=== PATIENT | male | born 1985 | race Caucasian/White ===

== ENCOUNTER 2018-12-08 23:09 | Emergency (ER) | payer MEDICARE ==
[~2018-12-08] VITALS: Ht 170.2 cm; Wt 81.6 kg
[2018-12-08 23:15] VITALS: Ht 170.2 cm; Wt 81.6 kg
[2018-12-09 00:36] LABS: HEMATOCRIT 44.5 % (42.0-54.0); HEMOGLOBIN 15.6 g/dL (13.5-17.5); LYMPHOCYTES 18.7 % (15-50); MCH 29.8 pg (26.0-34.0); MCHC 35.1 g/dL (31.0-37.0); MCV 85.1 fL (80.0-100.0); MEAN PLATELET VOLUME 10.7 fL (7.4-10.4); NEUTROPHILS 75.1 % (40-80); PLATELET COUNT 279 10x3/uL (130-400); RBC 5.23 10x6/uL (4.20-6.10); RDW 13.6 % (11.5-14.5); WBC 10.3 10x3/uL (4.8-10.8)
[2018-12-09 00:55] LABS: ALBUMIN 3.9 g/dL (3.4-5.0); ALKALINE PHOSPHATASE 72 U/L (46-116); ALT (SGPT) 37 U/L (10-68); BILIRUBIN - TOTAL 0.62 mg/dL (0.2-1.3); CALC OSMOLALITY 274 mosm/kg (275-300); CALCIUM 9.9 mg/dL (8.5-10.1); CARBON DIOXIDE 18.9 mmol/L (21.0-32.0); CHLORIDE - SERUM 100 mmol/L (98-107); CREATININE - SERUM 1.2 mg/dL (0.6-1.3); GLUCOSE 128 mg/dL (74-106); POTASSIUM - SERUM 3.1 mmol/L (3.5-5.1); PROTEIN - SERUM 8.8 g/dL (6.4-8.2); SODIUM 137 mmol/L (136-145); UREA NITROGEN 10 mg/dL (7-18); eGFR NON AFRICAN AMERICAN 75 mL/min (90-120)
[2018-12-09 01:01] LABS: AMYLASE - SERUM 52 U/L (25-115); LIPASE 119 U/L (73-393)
[2018-12-09 01:05] LABS: UDS - AMPHET NEGATIVE QUAL (NEGATIVE); UDS - BARB NEGATIVE QUAL (NEGATIVE); UDS - BENZO POSITIVE QUAL (NEGATIVE); UDS - COCAINE NEGATIVE QUAL (NEGATIVE); UDS - OPIATE NEGATIVE QUAL (NEGATIVE); UDS - PCP NEGATIVE QUAL (NEGATIVE); UDS - THC NEGATIVE QUAL (NEGATIVE)
[2018-12-09 01:16] LABS: APPEARANCE CLEAR (CLEAR); COLOR YELLOW (YELLOW); GLUCOSE NEGATIVE (NEGATIVE); NITRITE NEGATIVE (NEGATIVE); PROTEIN NEGATIVE (NEGATIVE)
[2018-12-09 01:17] LABS: BILIRUBIN NEGATIVE (NEGATIVE); KETONE MODERATE mg/dL (NEGATIVE); UROBILINOGEN NORMAL (NORMAL)
[2018-12-09 12:34] VITALS: BP 112/72
== END 2018-12-09 12:35 ==
LOC: D.ER 23:09
PROVIDERS: Family Medicine
DX: F20.9 Schizophrenia, unspecified (principal); R10.9 Unspecified abdominal pain; E86.0 Dehydration; F90.9 Attention-deficit hyperactivity disorder, unspecified type; Z87.09 Personal history of other diseases of the respiratory system; F41.9 Anxiety disorder, unspecified; F22 Delusional disorders

== ENCOUNTER 2019-06-09 20:21 | Emergency (ER) | payer MEDICARE ==
[2019-06-09 20:29] VITALS: Ht 165.1 cm
[2019-06-09] MEDS ORDERED: AUGMENTIN 875-11 TAB PO (21:34)
[2019-06-09] MEDS ORDERED: ALBUTEROL SULF8.5 GM INH (21:34)
[2019-06-09 21:49] VITALS: BP 111/69
== END 2019-06-09 21:50 | disposition home or self-care (01) ==
LOC: D.ER 20:21
DX: J40 Bronchitis, not specified as acute or chronic (principal); F17.200 Nicotine dependence, unspecified, uncomplicated

== ENCOUNTER 2019-06-15 08:40 | Emergency (ER) | payer MEDICARE ==
[~2019-06-15] VITALS: Ht 165.1 cm; Wt 68.2 kg
[~2019-06-15 08:40] MED LIST: ALBUTEROL SULF8.5 GM INH; AUGMENTIN 875-11 TAB PO
[2019-06-15 08:55] VITALS: Ht 165.1 cm; Wt 68.2 kg
--- NOTE | 2019-06-15 09:21 | NUR ---
DR. VALENZUELA NOTIFIED AND SITTER ORDERED. SITTER AT BEDSIDE. NOTIFIED CHARGE NURSE AND ATTENDING IN REGARDS TO ASSESSMENT FINDINGS. RESOURCES GIVEN TO PT AND SAFETY PLAN INITIATED.
[2019-06-15 09:30] LABS: BASOPHILS 0 % (0-2); EOSINOPHILS 0 % (0-7); HEMOGLOBIN 13.6 g/dL (13.5-17.5); IMMATURE GRANULOCYTES 0.2 % (0-5); LYMPHOCYTES 31.3 % (15-50); MCH 31.7 pg (26.0-34.0); MCHC 36.8 g/dL (31.0-37.0); MCV 86.2 fL (80.0-100.0); MONOCYTES 6.5 % (2-11); RBC 4.29 10x6/uL (4.20-6.10); RDW 12.6 % (11.5-14.5); WBC 6.6 10x3/uL (4.8-10.8)
[2019-06-15 09:33] LABS: PLATELET COUNT 219 10x3/uL (130-400)
[2019-06-15 09:36] LABS: UDS - AMPHET NEGATIVE QUAL (NEGATIVE); UDS - BARB NEGATIVE QUAL (NEGATIVE); UDS - BENZO NEGATIVE QUAL (NEGATIVE); UDS - COCAINE NEGATIVE QUAL (NEGATIVE); UDS - OPIATE NEGATIVE QUAL (NEGATIVE); UDS - PCP NEGATIVE QUAL (NEGATIVE); UDS - THC NEGATIVE QUAL (NEGATIVE)
[2019-06-15 09:49] LABS: APPEARANCE HAZY (CLEAR); BACTERIA FEW /hpf (NONE SEEN); BILIRUBIN NEGATIVE (NEGATIVE); COLOR DK YELLOW (YELLOW); GLUCOSE NEGATIVE (NEGATIVE); KETONE LARGE mg/dL (NEGATIVE); MUCUS >1+ /lpf (NONE SEEN); NITRITE NEGATIVE (NEGATIVE); PROTEIN TRACE mg/dL (NEGATIVE); RED CELLS - URINE RARE /hpf (0-5); SPECIFIC GRAVITY 1.025 (1.005-1.020); WHITE CELLS - URINE RARE /hpf (0-5)
[2019-06-15 09:50] LABS: HYALINE CAST RARE /lpf (NONE SEEN)
[2019-06-15 10:06] LABS: ALBUMIN 4.1 g/dL (3.4-5.0); ALKALINE PHOSPHATASE 71 U/L (46-116); ALT (SGPT) 26 U/L (10-68); BILIRUBIN - TOTAL 0.52 mg/dL (0.2-1.3); CALC OSMOLALITY 275 mosm/kg (275-300); CALCIUM 9.1 mg/dL (8.5-10.1); CARBON DIOXIDE 23.6 mmol/L (21.0-32.0); CHLORIDE - SERUM 102 mmol/L (98-107); CREATININE - SERUM 0.9 mg/dL (0.6-1.3); GLUCOSE 91 mg/dL (74-106); POTASSIUM - SERUM 3.1 mmol/L (3.5-5.1); PROTEIN - SERUM 7.8 g/dL (6.4-8.2); SODIUM 138 mmol/L (136-145); UREA NITROGEN 13 mg/dL (7-18); eGFR NON AFRICAN AMERICAN > 90 mL/min (90-120)
[2019-06-15 10:15] LABS: CREATINE KINASE 123 UL (21-232); THYROID STIMULATING HORMONE 3.61 uIU/mL (0.36-3.74)
[2019-06-15 20:41] VITALS: BP 132/89
== END 2019-06-15 20:41 ==
LOC: D.ER 08:40
PROVIDERS: Family Medicine
DX: E87.6 Hypokalemia (principal); F29 Unspecified psychosis not due to a substance or known physiological condition

== ENCOUNTER 2019-10-13 10:53 | Emergency (ER) | payer MEDICARE ==
[~2019-10-13] VITALS: Ht 165.1 cm; Wt 65.9 kg
[2019-10-13 11:10] VITALS: Ht 165.1 cm; Wt 65.9 kg
[2019-10-13 11:45] LABS: UDS - AMPHET NEGATIVE QUAL (NEGATIVE); UDS - BARB NEGATIVE QUAL (NEGATIVE); UDS - BENZO NEGATIVE QUAL (NEGATIVE); UDS - COCAINE NEGATIVE QUAL (NEGATIVE); UDS - OPIATE NEGATIVE QUAL (NEGATIVE); UDS - PCP NEGATIVE QUAL (NEGATIVE); UDS - THC NEGATIVE QUAL (NEGATIVE)
[2019-10-13 12:09] LABS: APPEARANCE CLEAR (CLEAR); BILIRUBIN NEGATIVE (NEGATIVE); COLOR YELLOW (YELLOW); GLUCOSE NEGATIVE (NEGATIVE); KETONE NEGATIVE (NEGATIVE); NITRITE NEGATIVE (NEGATIVE); PROTEIN NEGATIVE (NEGATIVE); SPECIFIC GRAVITY 1.015 (1.005-1.020); UROBILINOGEN NORMAL (NORMAL)
[2019-10-13 12:43] LABS: BASOPHILS 0 % (0-2); EOSINOPHILS 0 % (0-7); HEMATOCRIT 39.6 % (42.0-54.0); HEMOGLOBIN 13.7 g/dL (13.5-17.5); MCH 31.2 pg (26.0-34.0); MCHC 34.6 g/dL (31.0-37.0); MCV 90.2 fL (80.0-100.0); MONOCYTES 3.7 % (2-11); NEUTROPHILS 63.3 % (40-80); PLATELET COUNT 249 10x3/uL (130-400); RBC 4.39 10x6/uL (4.20-6.10); RDW 12.9 % (11.5-14.5); WBC 5.9 10x3/uL (4.8-10.8)
--- NOTE | 2019-10-13 12:45 | NUR ---
DR. VALENZUELA NOTIFIED AND SITTER ORDERED. SITTER AT BEDSIDE. NOTIFIED CHARGE NURSE AND ATTENDING IN REGARDS TO ASSESSMENT FINDINGS. RESOURCES GIVEN TO PATIENT AND SAFETY PLAN INITIATED. HE IS NOT CLEAR ON ANSWERING QUESTIONS, BECAUSE HE HEARS VOICES AND HE IS CONSTANTLY TRYING TO ANSWER THEM. HE HAS MOSTLY SELF-INJURIOUS ATTEMPTS. WILL PLACE A SITTER ON PATIENT FOR SAFETY.
[2019-10-13 12:51] LABS: CALC OSMOLALITY 278 mosm/kg (275-300); CARBON DIOXIDE 25.1 mmol/L (21.0-32.0); CHLORIDE - SERUM 105 mmol/L (98-107); CREATININE - SERUM 0.9 mg/dL (0.6-1.3); GLUCOSE 133 mg/dL (74-106); POTASSIUM - SERUM 3.1 mmol/L (3.5-5.1); SODIUM 140 mmol/L (136-145); UREA NITROGEN 7 mg/dL (7-18); eGFR NON AFRICAN AMERICAN > 90 mL/min (90-120)
[2019-10-13 12:56] LABS: ALBUMIN 3.6 g/dL (3.4-5.0); ALKALINE PHOSPHATASE 61 U/L (46-116); ALT (SGPT) 24 U/L (10-68); BILIRUBIN - TOTAL 0.42 mg/dL (0.2-1.3); MAGNESIUM - SERUM 1.9 mg/dL (1.8-2.4); PROTEIN - SERUM 7.8 g/dL (6.4-8.2)
[2019-10-13 22:08] VITALS: BP 110/62
== END 2019-10-13 22:11 ==
LOC: D.ER 10:53
PROVIDERS: Family Medicine
DX: R45.851 Suicidal ideations (principal); R44.0 Auditory hallucinations; F60.9 Personality disorder, unspecified

== ENCOUNTER 2020-04-27 15:14 | Emergency (ER) | payer MEDICARE ==
[~2020-04-27] VITALS: Ht 165.1 cm; Wt 81.8 kg
[2020-04-27 15:20] VITALS: Ht 165.1 cm; Wt 81.8 kg
[2020-04-27] MEDS ORDERED: HALDOL5 MG PO (15:23)
[2020-04-27] MEDS ORDERED: BENZTROPINE MESY2 MG PO (15:23)
[2020-04-27] MEDS ORDERED: CELEXA20 MG PO (15:23)
[2020-04-27] MEDS ORDERED: CARBATROL 200200 MG PO (15:24)
[2020-04-27] MEDS ORDERED: STERAPRED 5MG 65 M1 PO (16:04)
[2020-04-27 18:07] VITALS: BP 123/73
== END 2020-04-27 18:07 | disposition home or self-care (01) ==
LOC: D.ER 15:14
DX: J45.909 Unspecified asthma, uncomplicated (principal); Z72.0 Tobacco use; R06.02 Shortness of breath

== ENCOUNTER 2021-05-11 21:17 | Emergency (ER) | payer MEDICARE ==
[~2021-05-11] VITALS: Ht 167.6 cm; Wt 79.5 kg
[~2021-05-11 21:17] MED LIST changes: +ACETAMINOPHEN500 M1 PO; +BENZTROPINE MESY2 MG PO; +CARBATROL 200200 MG PO; +CELEXA20 MG PO; +CYCLOBENZAPRINE10 MG PO; +HALDOL5 MG PO; +INVEGA PO; +NAPROSYN500 MG PO; +STERAPRED 5MG 65 M1 PO; +TEGRETOL XR200 M1 PO; +TEGRETOL200 MG PO
[2021-05-11 21:29] VITALS: Ht 167.6 cm; Wt 79.5 kg
[2021-05-11 21:55] LABS: UDS - AMPHET NEGATIVE QUAL (NEGATIVE); UDS - BARB NEGATIVE QUAL (NEGATIVE); UDS - BENZO NEGATIVE QUAL (NEGATIVE); UDS - COCAINE NEGATIVE QUAL (NEGATIVE); UDS - OPIATE NEGATIVE QUAL (NEGATIVE); UDS - PCP NEGATIVE QUAL (NEGATIVE); UDS - THC NEGATIVE QUAL (NEGATIVE)
[2021-05-11 22:02] LABS: CALC OSMOLALITY 278 mosm/kg (275-300); CALCIUM 8.6 mg/dL (8.5-10.1); CARBON DIOXIDE 27.9 mmol/L (21.0-32.0); CHLORIDE - SERUM 106 mmol/L (98-107); CREATININE - SERUM 0.9 mg/dL (0.6-1.3); GLUCOSE 77 mg/dL (74-106); POTASSIUM - SERUM 3.4 mmol/L (3.5-5.1); SODIUM 141 mmol/L (136-145); UREA NITROGEN 9 mg/dL (7-18); eGFR NON AFRICAN AMERICAN > 90 mL/min (90-120)
[2021-05-11 22:04] LABS: BILIRUBIN NEGATIVE (NEGATIVE); KETONE NEGATIVE mg/dL (< 1+); NITRITE NEGATIVE (NEGATIVE); SQUAMOUS EPITHELIAL 6 HPF (0-4); UROBILINOGEN 8 mg/dL (< 2); WHITE CELLS - URINE >182 HPF (0-1)
[2021-05-11 22:08] LABS: ALBUMIN 3.4 g/dL (3.4-5.0); ALKALINE PHOSPHATASE 67 U/L (30-120); ALT (SGPT) 34 U/L (10-68); BASOPHILS 0.2 % (0-2); BILIRUBIN - TOTAL 0.24 mg/dL (0.2-1.3); CARBAMAZEPINE (TEGRETOL) 7.7 ug/mL (4.0-12.0); EOSINOPHILS 0 % (0-7); HEMATOCRIT 43.6 % (42.0-54.0); HEMOGLOBIN 14.8 g/dL (13.5-17.5); LYMPHOCYTES 34.4 % (15-50); MAGNESIUM - SERUM 1.9 mg/dL (1.8-2.4); MCH 31.3 pg (26.0-34.0); MCHC 33.9 g/dL (31.0-37.0); MCV 92.2 fL (80.0-100.0); MEAN PLATELET VOLUME 8.7 fL (7.4-10.4); MONOCYTES 7.4 % (2-11); PLATELET COUNT 256 10x3/uL (130-400); PROTEIN - SERUM 6.9 g/dL (6.4-8.2); RBC 4.72 10x6/uL (4.20-6.10); RDW 13.5 % (11.5-14.5); WBC 7.9 10x3/uL (4.8-10.8)
--- NOTE | 2021-05-11 23:21 | NUR ---
DR VALENZUELA NOTIFIED AND SITTER ORDERED. SITTER AT BEDSIDE. NOTIFIED CHARGE AND ATTENDING IN REGARDS TO ASSESSMENT FINDINGS. RESOURCES GIVEN TO PT AND SAFETY PLAN INITIATED.
[2021-05-12 07:53] VITALS: BP 111/56
== END 2021-05-12 07:55 ==
LOC: D.ER 21:17
PROVIDERS: Family Medicine
DX: R45.851 Suicidal ideations (principal); R44.0 Auditory hallucinations; R44.1 Visual hallucinations; X78.1XXA Intentional self-harm by knife, initial encounter